=== PATIENT | female | born 1970 | race Caucasian/White ===

== ENCOUNTER 2020-04-27 18:27 | Emergency (ER) | payer BC ==
[2020-04-27] MEDS ORDERED: Lidocaine 2% with EPINEPHrine 1:100,000 20 ML MDV INJECT ONE (19:05)
[2020-04-27] MEDS ORDERED: Lidocaine 1% with EPINEPHrine 1:100,000 20 ML MDV ONE (19:16)
[2020-04-27] MEDS ORDERED: Diphtheria,Pertussis(Acell),Tetanus Vaccine 0.5 ML Syringe IM ONE (19:24)
--- NOTE | 2020-04-27 19:29 | EDM.PDOC ---
ED HPI GENERAL MEDICAL PROBLEM - General Chief Complaint: Laceration Stated Complaint: INJURY TO L FOOT Time Seen by Provider: 04/27/20 18:59 Source of Information: Reports: Patient - History of Present Illness INITIAL COMMENTS - FREE TEXT/NARRATIVE: Gwendolyn is a 50 y/o female who was on a boat all day and when she went to step onto the dock, she hyperextended her foot and she felt her toe start burning. She is unaware of stepping on anything. Unsure of last tetanus immunization. Left Toe-Middle Pain Score (Numeric/FACES): 5 - Related Data Allergies Allergy/AdvReac Type Severity Reaction Status Date / Time morphine Allergy Hives Verified 04/27/20 18:50 Home Meds: Home Meds . [No Known Home Meds] 04/27/20 [History] Social & Family History - Tobacco Use Smoking Status *Q: Current Every Day Smoker Years of Tobacco use: 35 Packs/Tins Daily: 1 - Recreational Drug Use Recreational Drug Use: No ED ROS GENERAL - Review of Systems Review Of Systems: See Below Constitutional: Reports: No Symptoms HEENT: Reports: No Symptoms Respiratory: Reports: No Symptoms Cardiovascular: Reports: No Symptoms Endocrine: Reports: No Symptoms GI/Abdominal: Reports: No Symptoms : Reports: No Symptoms Musculoskeletal: Reports: No Symptoms Neurological: Reports: Other (lacerations) Psychiatric: Reports: No Symptoms Hematologic/Lymphatic: Reports: No Symptoms Immunologic: Reports: No Symptoms ED EXAM, SKIN/RASH Exam: See Below Exam Limited By: No Limitations General Appearance: Alert, WD/WN, No Apparent Distress (Adult female.) Ears: Hearing Grossly Normal Nose: Normal Inspection Throat/Mouth: Normal Voice Head: Atraumatic, Normocephalic Neck: Normal Inspection Respiratory/Chest: No Respiratory Distress Cardiovascular: Other (Not examined) GI/Abdominal: Soft (Female) Exam: Deferred Rectal (Female) Exam: Deferred Back Exam: Other (Not examined) Extremities: Normal Inspection, Normal Range of Motion, Normal Capillary Refill, Other (Note 2 cm laceration in the crease of the left middle toe on the dorsal aspect, mild bleeding) Psychiatric: Normal Affect Skin: Warm, Dry, Intact, Normal Color ED SKIN PROCEDURES - Laceration/Wound Repair Toe - Third Appearance: Subcutaneous, Linear, Clean Distal NVT: Neuro & Vascular Intact, No Tendon Injury Anesthetic Type: Local Local Anesthesia - Lidocaine (Xylocaine): 1% with EPI Local Anesthetic Volume: 3cc Skin Prep: Providone-Iodine (Betadine), Saline, Sterile Drape Exploration/Debridement/Repair: Wound Explored, Minimal Debridement, No Foreign Material Found Closed with: Sutures Lac/Wound length In cm: 2.0 Suture Size: 3-0 Suture Type: Other (Vicryl) Sterile Dressing Applied: Provider Tetanus Status Addressed: Yes Complications: No Progress/Comments: Patient tolerated well. EBL=minimal Course - Vital Signs Text/Narrative:: The patient was seen by the [facility]. Xray was obtained to rule out a fracture of the left middle toe. The laceration was repaire. See Procedure Note. Her tetanus was updated. She was given discharge instructions and sent home in stable condition. Last Recorded V/S: Last Vital Signs Temp 36.9 C 04/27/20 18:35 Pulse 77 04/27/20 18:35 Resp 18 04/27/20 18:35 BP 149/85 H 04/27/20 18:35 Pulse Ox 97 04/27/20 18:35 - Orders/Labs/Meds Orders: Active Orders 24 hr Category Date Time Status Foot Comp Min 3V Lt [CR] Stat Exams 04/27/20 18:56 Taken Meds: Medications Discontinued Medications Generic Name Dose Route Start Last Admin Trade Name Shantell PRN Reason Stop Dose Admin Lidocaine/Epinephrine 20 ml 04/27/20 19:05 Xylocaine 2% With Epinephrine 1:100,000 INJECT 04/27/20 19:06 ONETIME ONE Lidocaine/Epinephrine Confirm 04/27/20 19:16 Xylocaine 1% With Epinephrine 1:100,000 Administered 04/27/20 19:17 Dose 20 ml .ROUTE .STK-MED ONE - Radiology Interpretation Free Text/Narrative:: XR Left Foot-no fx noted (See final report) Departure - Departure Time of Disposition: 19:24 Disposition: Home, Self-Care 01 Condition: Good Clinical Impression: Laceration of toe of left foot, Tetanus toxoid inoculation - Discharge Information *PRESCRIPTION DRUG MONITORING PROGRAM REVIEWED*: Not Applicable *COPY OF PRESCRIPTION DRUG MONITORING REPORT IN PATIENT [place]: Not Applicable Instructions: Laceration Care, Adult, VIS, Tetanus, Diphtheria (Td); Tetanus, Diphtheria, Pertussis (Tdap) - [facility] Additional Instructions: -Keep the dressing intact to the left toe tonight. Tomorrow you may remove it and wash it with soap and water. Then dress with small amount of antibiptic ointment and light bandaid for next 2-3 days. After that cover the wound with a dry dressing or leave it open to the air. -No need to return for suture removal. The sutures will dissolve and come out on their own, although you can remove them after 3 weeks if needed -Watch for signs of infection and see your PCP if you have any concerns -Use ibuprofen or acetaminophen as needed for pain -Return as needed to the ER -Your tetanus was updated at today's visit Sepsis Event Note (ED) - Evaluation Sepsis Screening Result: No Definite Risk - Focused Exam Vital Signs: Vital Signs Temp Pulse Resp BP Pulse Ox 04/27/20 18:35 36.9 C 77 18 149/85 H 97 - My Orders Last 24 Hours: My Active Orders 04/27/20 18:56 Foot Comp Min 3V Lt [CR] Stat - Assessment/Plan Last 24 Hours: My Active Orders 04/27/20 18:56 Foot Comp Min 3V Lt [CR] Stat
--- NOTE | 2020-04-27 19:42 | CR ---
[id number] RAD/RAD Foot Left 3V Min Exam: RAD Foot Left 3V Min Indication:FALL, LT 3RD TOE LACERATION Comparison: Discussion: No fracture. Bones are in normal alignment. Lateral view demonstrates Achilles enthesopathy and a plantar calcaneal spur. Impression: No acute findings. Moreno Jordan MD 04/27/20 [id number] Thank you for allowing us to participate in the care of your patient.
== END 2020-04-27 19:39 | disposition home or self-care (01) ==
LOC: VM.ED 18:27
DX: S91.115A Laceration without foreign body of left lesser toe(s) without damage to nail, initial encounter (principal); Z23 Encounter for immunization; F17.210 Nicotine dependence, cigarettes, uncomplicated; Z88.5 Allergy status to narcotic agent; W22.8XXA Striking against or struck by other objects, initial encounter
CPT/HCPCS: 12001; 73630-LT; 90471; 90715; 99283-25; 99283-GF